=== PATIENT | female | born 1960 | race Caucasian/White ===

== ENCOUNTER 2016-12-18 12:32 | Day surgery (SDC) | payer OTHER ==
[~2016-12-18] VITALS: Ht 160 cm; Wt 59.2 kg
== END 2016-12-18 15:47 | disposition home or self-care (01) ==
LOC: RAD.S 12:32 → EDSTATUS 14:00 → RAD.S 15:47
DX: M80.88XA Other osteoporosis with current pathological fracture, vertebra(e), initial encounter for fracture (principal); Z88.8 Allergy status to other drugs, medicaments and biological substances; Z79.899 Other long term (current) drug therapy; Z79.891 Long term (current) use of opiate analgesic

== ENCOUNTER 2016-12-22 12:32 | Day surgery (SDC) | payer OTHER ==
[~2016-12-22] VITALS: Ht 160 cm; Wt 59.0 kg
== END 2016-12-22 17:45 | disposition home or self-care (01) ==
LOC: RAD.S 12:32 → EDSTATUS 14:00 → RAD.S 14:00
PROC: 0PS43ZZ Reposition Thoracic Vertebra, Percutaneous Approach (ICD-10-PCS; principal; 2016-12-22)
PROC: 0PU43JZ Supplement Thoracic Vertebra with Synthetic Substitute, Percutaneous Approach (ICD-10-PCS; principal; 2016-12-22)
DX: M48.54XA Collapsed vertebra, not elsewhere classified, thoracic region, initial encounter for fracture (principal); Z88.8 Allergy status to other drugs, medicaments and biological substances